=== PATIENT | female | born 1990 | race African-American/Black ===

== ENCOUNTER 2016-11-09 13:30 | Emergency (ER) | payer SELFPAY ==
[~2016-11-09] VITALS: Ht 160 cm; Wt 80.0 kg
[~2016-11-09 13:30] MED LIST: Z.0.NO CURRENT MEDS
[2016-11-09 13:31] VITALS: BP 130/83; PULSE 87; RESP 12; TEMP 98.5; O2SAT 99
== END 2016-11-09 16:58 | disposition left against medical advice (07) ==
LOC: NETRI 13:30
DX: R68.89 Other general symptoms and signs (principal)
CPT/HCPCS: 99281